=== PATIENT | female | born 1950 | race Caucasian/White ===

== ENCOUNTER → 2016-08-21 | Outpatient (CLI) | payer MEDICARE | END | disposition home or self-care (01) | LOC: LABWHC1 10:43 | PROVIDERS: ATTEND Internal Medicine Cardiovascular Disease | DX: I10 Essential (primary) hypertension (principal) | CPT/HCPCS: 36415; 83704 ==

== ENCOUNTER 2017-02-13 13:50 | Emergency (ER) | payer OTHER, MEDICARE ==
[2017-02-13 13:59] VITALS: BP 175/91; PULSE 87; RESP 17; TEMP 97.4
[2017-02-13] MEDS ORDERED: KETOROLAC 30 MG/ML 1 ML VIAL IM STA (14:19)
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
[2017-02-13] MEDS ORDERED: ONDANSETRON ODT 4 MG TAB PO STA (14:44)
--- NOTE | 2017-02-13 14:59 | CT ---
EXAMINATION TYPE: CT brain mckenna wo con DATE OF EXAM: 02/13/2017 COMPARISON: NONE HISTORY: 66-year-old female complains of headache, dizziness, nausea, and left shoulder pain. CT DLP: 1300.8 mGycm Automated exposure control for dose reduction was used. Technique: Examination of the head was done in axial plane without intravenous contrast. Coronal and sagittal reconstructions performed. CT of the cervical spine was obtained in axial plane without intravenous injection of contrast mater ial. Coronal and sagittal reformatted images were obtained from the axial views for evaluation of f ractures, spinal alignment and canal. FINDINGS: Head: There is no evidence of acute intracranial hemorrhage, acute ischemic changes, mass, mass-effect, or extra-axial fluid collection. There is no effacement of cerebral sulci or basal subarachnoid cister ns. There is no hydrocephalus. There is no midline shift. Mays-white matter distinction is preserv ed. Empty sella incidentally noted. Paranasal sinuses and mastoid air cells well pneumatized. No calvarial fracture. Cervical spine: The craniocervical junction, predental space, and prevertebral soft tissues are within normal limits. Normal alignment of the cervical spine. No acute fracture identified. Moderate degenerative disc disease and endplate spondylosis mid to lower cervical spine. There is dis c osteophyte complex at C5-C6 that causes mild to moderate canal stenosis. Scattered facet and uncove rtebral joint arthropathy contributes to variable mild and moderate neuroforaminal stenoses. Changes are greatest at C5-C6 and than at C4-C5 but also on the right at C3-C4. Sagittal and coronal reformatted images confirm above findings. COMBINED IMPRESSION: 1. No acute intracranial abnormality seen. 2. No acute fracture or malalignment of the cervical spine. Moderate multilevel spondylotic change.
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
== END 2017-02-13 16:19 | disposition home or self-care (01) ==
LOC: EC 13:50
DX: S49.92XA Unspecified injury of left shoulder and upper arm, initial encounter (principal); M54.6 Pain in thoracic spine; E78.5 Hyperlipidemia, unspecified; E03.9 Hypothyroidism, unspecified; F32.9 Major depressive disorder, single episode, unspecified; Z79.899 Other long term (current) drug therapy; V49.40XA Driver injured in collision with unspecified motor vehicles in traffic accident, initial encounter; Y92.410 Unspecified street and highway as the place of occurrence of the external cause
CPT/HCPCS: 99284 ×2; 96372 ×2; 71020; 72170; 73030; 72125; 70450; J1885

== ENCOUNTER → 2017-08-06 | Outpatient (CLI) | payer MEDICARE | END | disposition home or self-care (01) | LOC: LABWHC1 10:35 | PROVIDERS: ATTEND Internal Medicine Cardiovascular Disease | DX: I10 Essential (primary) hypertension (principal) | CPT/HCPCS: 36415; 83704 ==

== ENCOUNTER → 2018-08-09 | Outpatient (CLI) | payer MEDICARE ==
[2018-08-12 17:08] LABS: Large VLDL Particle Number,NMR 6.8 nmol/L (<=2.7)
== END | disposition home or self-care (01) ==
LOC: LABWHC1 08:13
PROVIDERS: ATTEND Internal Medicine Cardiovascular Disease
DX: I25.10 Atherosclerotic heart disease of native coronary artery without angina pectoris (principal); I10 Essential (primary) hypertension
CPT/HCPCS: 36415; 83704

== ENCOUNTER → 2018-10-12 | Outpatient (CLI) | payer MEDICARE ==
[2018-10-12 15:00] LABS: HCT 48.2 % (34.0-46.0); MCHC 33.2 g/dL (31.0-37.0); MCV 96.5 fL (80.0-100.0); Mean Platelet Volume 8.1; Platelet Count 218 k/uL (150-450); RBC 4.99 m/uL (3.80-5.40); RDW 12.6 % (11.5-15.5); WBC 6.6 k/uL (3.8-10.6)
[2018-10-12 23:25] LABS: Anion Gap 13.4 mmol/L (4.00-12.00); Carbon Dioxide 24.6 mmol/L (21.6-31.8); Potassium 4.8 mmol/L (3.5-5.5)
== END ==
LOC: LABWHC1 13:14
PROVIDERS: ATTEND Surgery Plastic and Reconstructive Surgery
DX: Z01.812 Encounter for preprocedural laboratory examination (principal)
CPT/HCPCS: 36415; 80048; 85027

== ENCOUNTER → 2018-11-08 | Outpatient (CLI) | payer MEDICARE ==
--- NOTE | 2018-11-09 11:08 | MM ---
Reason for exam: screening (asymptomatic). Last mammogram was performed 2 years and 6 months ago. History: Patient is postmenopausal. 2 benign excisional biopsies of the right breast. Physical Findings: A clinical breast exam by your physician is recommended on an annual basis and results should be correlated with mammographic findings. MG 3D Screening Mammo W/Cad Bilateral CC and MLO view(s) were taken. Prior study comparison: May 14, 2016, bilateral MG screening mammo w CAD. June 21, 2007, bilateral screening mammogram w/CAD. There are scattered fibroglandular densities. No significant changes when compared with prior studies. ASSESSMENT: Negative, BI-RAD 1 RECOMMENDATION: Routine screening mammogram of both breasts in 1 year.
== END | disposition home or self-care (01) ==
LOC: RADMAMWWP 13:00
PROVIDERS: ATTEND Internal Medicine
DX: Z12.31 Encounter for screening mammogram for malignant neoplasm of breast (principal)
CPT/HCPCS: 77063; 77067

== ENCOUNTER → 2019-06-22 | Outpatient (CLI) | payer MEDICARE ==
--- NOTE | 2019-06-22 23:10 | CT ---
EXAMINATION TYPE: CT abdomen pelvis w con DATE OF EXAM: 06/22/2019 HISTORY: flank pain, hematuria CT DLP: 1733.9mGycm Automated Exposure Control for Dose Reduction was Utilized. CONTRAST: CT scan of the abdomen and pelvis is performed with IV Contrast, patient injected with 100 mL of Isov ue 300. COMPARISON: Complete abdominal ultrasound June 06, 2016 FINDINGS: LUNG BASES: No significant abnormality is appreciated. LIVER/GB: Simple appearing 1.6 cm thin-walled cyst anterior in the liver image 15 is felt present. It is believed to be corresponding to lesion identified on ultrasound. Liver is overall heterogeneously hypodense consistent with fatty infiltration as confirmed on ultrasound PANCREAS: No significant abnormality is seen. SPLEEN: No significant abnormality is seen. ADRENALS: No significant abnormality is seen. KIDNEYS: Symmetrical cortical medullary uptake and excretion from both kidneys without hydronephrosis or concerning renal mass identified bilaterally. No definitive nephrolithiasis. No intraluminal calc ulus in bladder. BOWEL: Surgical changes just below diaphragm epigastric region are presumed product of prior Memo f undoplication surgery. There is normal-appearing appendix from cecum right lower quadrant. Oral contr ast reaches level splenic flexure. No suspicious small or large bowel dilatation. UTERUS/ADNEXA: Uterus surgically absent. Scattered pelvic phleboliths bilaterally. No adnexal masses. LYMPH NODES: No greater than 1cm abdominal or pelvic lymph nodes are appreciated. OSSEOUS STRUCTURES: Some facet arthropathy lower lumbar spine. Multilevel spurring in the visualized thoracic spine. OTHER: Small to moderate-sized fat-containing umbilical hernia. Mild vascular calcification aorta ext ends into iliac branch vessels IMPRESSION: 1. No significant acute finding is seen to account for patient's clinical symptoms of hematuria and f lank pain.
== END | disposition home or self-care (01) ==
LOC: RADCTMAIN 15:21
PROVIDERS: ATTEND Internal Medicine
DX: R10.9 Unspecified abdominal pain (principal)
CPT/HCPCS: 82565; 84520; 74177; 36415; Q9967

== ENCOUNTER → 2020-02-08 | Outpatient (CLI) | payer MEDICARE ==
[2020-02-08 19:49] LABS: African American GFR (CKD) 103.2 (60.0-200.0); Anion Gap 7.4 mmol/L (4.00-12.00); BUN/Creat Ratio 28.57 Ratio (12.00-20.00); Calcium 10.1 mg/dL (8.7-10.3); Carbon Dioxide 27.6 mmol/L (21.6-31.8); Chol/HDL Ratio 2.71; LDL Cholesterol,Calculated 76.2 mg/dL (0.0-131.0); Potassium 4.8 mmol/L (3.5-5.5); VLDL Calculation 10.8 mg/dL (5.00-40.00)
== END | disposition home or self-care (01) ==
LOC: LABWHC1 10:37
PROVIDERS: ATTEND Physician Assistant
DX: I10 Essential (primary) hypertension (principal); E78.2 Mixed hyperlipidemia; E03.9 Hypothyroidism, unspecified
CPT/HCPCS: 36415; 80048; 80061; 84439; 84443; 84481

== ENCOUNTER → 2021-06-21 | Outpatient (CLI) | payer MEDICARE ==
--- NOTE | 2021-06-24 13:26 | MM ---
Reason for exam: screening (asymptomatic). Last mammogram was performed 2 years and 7 months ago. History: Patient is postmenopausal. 2 benign excisional biopsies of the right breast. Physical Findings: A clinical breast exam by your physician is recommended on an annual basis and results should be correlated with mammographic findings. MG 3D Screening Mammo W/Cad Bilateral CC and MLO view(s) were taken. Prior study comparison: November 08, 2018, bilateral MG 3d screening mammo w/cad. May 14, 2016, bilateral MG screening mammo w CAD. There are scattered fibroglandular densities. There is no discrete abnormality. ASSESSMENT: Negative, BI-RAD 1 RECOMMENDATION: Routine screening mammogram of both breasts in 1 year.
== END | disposition home or self-care (01) ==
LOC: RADMAMWWP 15:10
PROVIDERS: ATTEND Family Medicine
DX: Z12.31 Encounter for screening mammogram for malignant neoplasm of breast (principal); Z78.0 Asymptomatic menopausal state
CPT/HCPCS: 77063; 77067

== ENCOUNTER → 2021-12-18 | Outpatient (CLI) | payer MEDICARE ==
--- NOTE | 2021-12-19 00:03 | XR ---
EXAMINATION TYPE: XR abdomen 2V DATE OF EXAM: 12/18/2021 COMPARISON: CT dated 06/22/2019 INDICATION: Epigastric pain TECHNIQUE: Supine and upright views of the abdomen and pelvis FINDINGS: No obvious free air under the diaphragm. No multiple air-fluid levels or signs of acute high-grade sm all bowel obstruction. Mild fecal loading of the colon. Degenerative changes of the lower thoracic and upper lumbar spine. Bilateral pelvic phleboliths rathe r than urinary calculi. IMPRESSION: As above.
== END | disposition home or self-care (01) ==
LOC: RADXRMAIN 15:11
PROVIDERS: ATTEND Family Medicine
DX: R10.13 Epigastric pain (principal)
CPT/HCPCS: 74019

== ENCOUNTER → 2022-07-14 | Outpatient (CLI) | payer MEDICARE ==
--- NOTE | 2022-07-15 07:53 | XR ---
EXAMINATION TYPE: XR foot complete RT DATE OF EXAM: 07/14/2022 4:55 PM INDICATION: Patient age:Female; 72 years old; Reason for study: M79.671 Pain in Rt Foot; PHH. COMPARISON: None TECHNIQUE: The right foot was examined in the AP, oblique, and lateral projections. FINDINGS: No evidence of any acute osseous pathology. No evidence of soft tissue swelling. Joints are preserve d. Moderate size posterior and plantar calcaneal enthesophytes. IMPRESSION: No evidence of acute fracture.
== END | disposition home or self-care (01) ==
LOC: RADXRMAIN 16:42
PROVIDERS: ATTEND Family Medicine
DX: M79.671 Pain in right foot (principal)

== ENCOUNTER → 2022-07-14 | Outpatient (CLI) | payer MEDICARE ==
--- NOTE | 2022-07-15 18:54 | MM ---
Reason for Exam: Screening (asymptomatic). Last mammogram was performed 1 year(s) and 1 month(s) ago. Patient History: Menarche at age 15. First Full-Term at age 31. Late child-bearing (after 31). Hysterectomy at age 48. Postmenopausal. Patient used Hormonal Contraceptives for 10 years. Benign Excisional Biopsy on the right side. Benign Excisional Biopsy on the right side. Risk Values: Alondra 5 year model risk: 3.3%. NCI Lifetime model risk: 8.9%. Prior Study Comparison: 05/14/2016 Bilateral Screening Mammogram, [facility]. 11/08/2018 Bilateral Screening Mammogram, [facility]. 06/21/2021 Bilateral Screening Mammogram, [facility]. Tissue Density: There are scattered fibroglandular densities. Findings: Analyzed By CAD. There is no suspicious group of microcalcifications or new suspicious mass in either breast. Overall Assessment: Negative, BI-RAD 1 Management: Screening Mammogram of both breasts in 1 year. 1. Patient should continue monthly self breast exams. 2. A clinical breast exam by your physician is recommended on an annual basis. 3. This exam should not preclude additional follow-up of suspicious palpable abnormalities. Electronically signed and approved by: Stefani Kay M.D. Radiologist
== END | disposition home or self-care (01) ==
LOC: RADMAMWWP 16:17
PROVIDERS: ATTEND Family Medicine
DX: Z12.31 Encounter for screening mammogram for malignant neoplasm of breast (principal); Z78.0 Asymptomatic menopausal state; Z98.890 Other specified postprocedural states
CPT/HCPCS: 77063; 77067

== ENCOUNTER → 2022-07-31 | Outpatient (CLI) | payer MEDICARE ==
--- NOTE | 2022-07-31 13:02 | BD ---
EXAMINATION TYPE: Axial Bone Density DATE OF EXAM: 07/31/2022 COMPARISON: NONE CLINICAL HISTORY: 72 years year old Female. ICD-10 CODE: Z78.0 MENOPAUSAL STATE Height: 5 FT 4 1/2 IN Weight: 211 FRAX RISK QUESTIONS: Alcohol (3 or more units per day): NO Family History (Parent hip fracture): NO Glucocorticoids (More than 3mos): NO (Ex: prednisone, prednisolone, methylprednisolone, dexamethasone, and hydrocortisone). History of Fracture in Adulthood: YES Secondary Osteoporosis: 1. Type 1 Diabetes: NO 2. Hyperthyroidism: NO 3. Menopause before 45: NO 4. Malnutrition: NO 5. Chronic liver disease: NO Rheumatoid Arthritis: NO Current Tobacco Use: NO RISK FACTORS HISTORY OF: Surgery to Spine/Hip(right/left)/Wrist (right/left): KRYSTLE WRIST When: RT 2020 LEFT 2010 Family History of Osteoporosis: NO Active: YES Diet low in dairy products/other sources of calcium: NO Postmenopausal woman: YES Take estrogen and/or progesterone medications: NONE NOW Lost more than 2 inches in height since high school: NO Frequent falls: NO Poor Health: GOOD Hyperparathyroidism: NO Adrenal Insufficiency: NO MEDICATIONS: Thyroid Medications: YES Which medication: LEVOTHYROXINE How Long: SINCE AGE 39 Additional Medications: LEVOTHYROXINE, RESTLESS LEG MEDS, BLOOD PRESSURE MEDS, DEPRESSION MEDS, LESLIE STEROL MEDS, MIGRAINE MEDS, Additional History: EXAM MEASUREMENTS: Bone mineral densitometry was performed using the [employer] System. Bone mineral density as measured about the Lumbar spine is: ----- L1-L4(G/cm2): 1.278 T Score Values are as follows: ----- L1: 0.8 ----- L2: 0.8 ----- L3: 0.4 ----- L4: 1.1 ----- L1-L4: 0.8 BASELINE Bone mineral density about the R hip (g/cm2): 0.791 Bone mineral density about the L hip (g/cm2): 0.789 T Score values are as follows: -----R Neck: -1.8 -----L Neck: -1.8 -----R Total: -0.8 -----L Total: -0.2 BASELINE FRAX%s: The graph provided illustrates a 10.3 % chance for a major osteoporotic fx and a 1.8 % chance for the hips probability for fx in 10 years time. IMPRESSION: Osteopenia (T Score between -2.5 and -1). There is slightly increased risk of fracture and the patient may be considered for treatment. Re-Screen 2-5 years. NOTE: T-SCORE=SD OF THE YOUNG ADULT MEAN.
== END | disposition home or self-care (01) ==
LOC: RADBDWWP 11:16
PROVIDERS: ATTEND Family Medicine
DX: M85.89 Other specified disorders of bone density and structure, multiple sites (principal); Z78.0 Asymptomatic menopausal state
CPT/HCPCS: 77080

== ENCOUNTER → 2023-01-05 | Outpatient (CLI) | payer MEDICARE ==
[2023-01-05 16:20] LABS: Calcium 10.7 mg/dL (8.7-10.3); Carbon Dioxide 23.5 mmol/L (21.6-31.8); Chloride 105 mmol/L (96-109); Glucose 106 mg/dL (70-110); Potassium 5.3 mmol/L (3.5-5.5); Sodium 140 mmol/L (135-145)
== END | disposition home or self-care (01) ==
LOC: LABWHC1 09:41
PROVIDERS: ATTEND Internal Medicine Clinical Cardiac Electrophysiology
DX: I10 Essential (primary) hypertension (principal)
CPT/HCPCS: 36415; 80048; 83735